=== PATIENT | female | born 1970 | race Caucasian/White ===

== ENCOUNTER 2018-09-23 08:49 | Emergency (ER) | payer BC ==
[2018-09-23 08:57] VITALS: BP 112/71
--- NOTE | 2018-09-23 09:12 | UC ---
Abdominal Pain Female HPI - HPI Summary HPI Summary: 4 days of worsening right lower quadrant pain associated with nausea, chills and low grade fever up to 101. - History of Current Complaint Chief Complaint: UCAbdominalPain Stated Complaint: ABD PAIN Time Seen by Provider: 09/23/18 09:03 Hx Obtained From: Patient, Family/Children Librarian - SIGNIFICANT OTHER Hx Last Menstrual Period: 09/04/18 Onset/Duration: Gradual Onset, Lasting Days, Still Present Timing: Constant Severity Initially: Moderate Severity Currently: Severe Pain Intensity: 8 Pain Scale Used: 0-10 Numeric Location: Discrete At: RLQ Radiates: No Character: Sharp Aggravating Factor(s): Movement Alleviating Factor(s): Nothing Associated Signs and Symptoms: Positive: Diaphoresis, Fever, Decreased Appetite , Nausea Allergies/Adverse Reactions: Allergies Allergy/AdvReac Type Severity Reaction Status Date / Time No Known Allergies Allergy Verified 09/23/18 08:57 PMH/Surg Hx/FS Hx/Imm Hx Previously Healthy: Yes Other History Of: Negative For: Anticoagulant Therapy - Surgical History Surgical History: None - Family History Family History: APPENDICITIS - Social History Alcohol Use: Occasionally Substance Use Type: None Smoking Status (MU): Never Smoked Tobacco Review of Systems All Other Systems Reviewed And Are Negative: Yes Constitutional: Positive: Fever, Chills Respiratory: Positive: Negative Cardiovascular: Positive: Negative Gastrointestinal: Positive: Abdominal Pain, Nausea Genitourinary: Positive: Negative Physical Exam Triage Information Reviewed: Yes Appearance: Well-Nourished, Pain Distress - MOD/SEVERE Vital Signs: Initial Vital Signs Temp 98 F 09/23/18 08:54 Pulse 63 09/23/18 08:54 Resp 16 09/23/18 08:54 BP 112/71 09/23/18 08:54 Pulse Ox 100 09/23/18 08:54 Vital Signs Reviewed: Yes Eyes: Positive: Conjunctiva Clear ENT: Positive: Hearing grossly normal Neck: Positive: Supple Respiratory: Positive: No respiratory distress, No accessory muscle use Cardiovascular: Positive: Pulses Normal Abdomen Description: Positive: Soft, Guarding, Other: - EXQUISITE RLQ TENDERNESS EVEN TO LIGHT PERCUSSION. POS OBTURATOR. PSOAS NOT DONE DUE TO PT INTOLERANCE. Negative: Distended Musculoskeletal: Positive: No Edema Neurological: Positive: Alert Psychological: Positive: Normal Response To Family, Age Appropriate Behavior Skin: Negative: Rashes Abd Pain Female Course/Dx - Course Course Of Treatment: CONCERN FOR ACUTE APPENDICITIS. TO [facility] ER BY PRIVATE CAR. PT OFFERED TRANSPORT TO THE ED BY AMBULANCE BUT DECLINES. ADVISED THAT BY NOT TRAVELING IN A MONITORED SETTING SHE COULD BE RISKING WORSENING OF HER CONDITION THAT COULD POSE A THREAT TO HER LIFE, HEALTH AND MEDICAL SAFETY. SHE VERBALIZES UNDERSTANDING AND CONTINUES TO DECLINE AMBULANCE TRANSFER. - Differential Dx/Diagnosis Provider Diagnosis: RLQ abdominal pain Discharge - Sign-Out/Discharge Documenting (check all that apply): Patient Departure All imaging exams completed and their final reports reviewed: No Studies - Discharge Plan Condition: Stable Disposition: TRANS HIGHER LVL OF CARE FAC Patient Education Materials: Abdominal Pain (ED) Referrals: David Fortune MD [Primary Care Provider] - If Needed Additional Instructions: CONCERN FOR ACUTE APPENDICITIS. GO DIRECTLY TO THE [facility] ED FROM HERE FOR FURTHER EVALUATION. YOU HAVE DECLINED TRANSFER TO THE ED BY AMBULANCE. BE ADVISED THAT BY NOT TRAVELING IN A MONITORED SETTING YOU COULD BE RISKING WORSENING OF YOUR CONDITION THAT COULD POSE A THREAT TO YOUR LIFE, HEALTH AND MEDICAL SAFETY. - Billing Disposition and Condition Condition: STABLE Disposition: Trans Higher Lvl of Care Fac
== END 2018-09-23 09:12 | disposition short-term general hospital (02) ==
LOC: UCEAST 08:49
DX: R10.31 Right lower quadrant pain (principal); R50.9 Fever, unspecified; R61 Generalized hyperhidrosis; F50.89 Other specified eating disorder; R11.0 Nausea
CPT/HCPCS: 99212; G0463

== ENCOUNTER 2018-09-23 09:25 | Emergency (ER) | payer BC ==
[2018-09-23] MEDS ORDERED: NS 0.9% 1000 ML** 1,000 ML IV ONE (09:51)
[2018-09-23] MEDS ORDERED: Ondansetron INJ* 2 MG/ML VIAL IV ONE (09:51)
[2018-09-23] MEDS ORDERED: Morphine 4 MG/ML VIAL (1 ml) 4 MG/ML VIAL IV ONE (09:53)
--- NOTE | 2018-09-23 10:00 | ED ---
Abdominal Pain/Female - HPI Summary HPI Summary: Patient is a 48-year-old female who presents emergency department for lower quadrant abdominal pain 4 days. Associated symptoms of nausea and diarrhea. Denies urinary symptoms, fever, cough or upper respiratory symptoms. Patient no significant past medical history. Pt. states pain was initially sharp and intermittent and today is dull and constant. Movement makes symptoms worse. Rest makes symptoms better. Symptoms are moderate in severity. - History of Current Complaint Chief Complaint: EDAbdPain Stated Complaint: LOWER RIGHT ABD PAIN PER PT Time Seen by Provider: 09/23/18 09:34 Hx Obtained From: Patient Hx Last Menstrual Period: 09/04/18 Pain Intensity: 8 Allergies/Adverse Reactions: Allergies Allergy/AdvReac Type Severity Reaction Status Date / Time No Known Allergies Allergy Verified 09/23/18 08:57 PMH/Surg Hx/FS Hx/Imm Hx Previously Healthy: Yes Endocrine/Hematology History: Denies: Hx Anticoagulant Therapy, Hx Diabetes, Hx Thyroid Disease Cardiovascular History: Denies: Hx Hypertension, Hx Pacemaker/ICD Respiratory History: Denies: Hx Asthma, Hx Chronic Obstructive Pulmonary Disease (COPD) GI History: Reports: Other GI Disorders - "GASTRO ISSUES" History: Denies: Hx Renal Disease Neurological History: Denies: Hx Dementia, Hx Seizures Psychiatric History: Denies: Hx Substance Abuse - Cancer History Hx Chemotherapy: No Hx Radiation Therapy: No Infectious Disease History: No Infectious Disease History: Denies: Hx Hepatitis, Hx Human Immunodeficiency Virus (HIV), Traveled Outside the [place] in Last 30 Days - Family History Known Family History: Positive: Non-Contributory Family History: APPENDICITIS - Social History Occupation: Employed Full-time Lives: With Family Alcohol Use: Occasionally Substance Use Type: Reports: None Smoking Status (MU): Never Smoked Tobacco Review of Systems Constitutional: Negative Negative: Fever, Chills Eyes: Negative ENT: Negative Cardiovascular: Negative Respiratory: Negative Positive: Abdominal Pain, Diarrhea, Nausea. Negative: Vomiting Genitourinary: Negative Negative: burning, dysuria, discharge, flank pain Skin: Negative All Other Systems Reviewed And Are Negative: Yes Physical Exam Triage Information Reviewed: Yes Vital Signs On Initial Exam: Initial Vitals Temp Pulse Resp BP Pulse Ox 98.2 F 60 18 130/84 99 09/23/18 09:27 09/23/18 09:27 09/23/18 09:27 09/23/18 09:27 09/23/18 09:27 Vital Signs Reviewed: Yes Appearance: Positive: Well-Appearing - Pt. sitting up in bed in NAD. Skin: Positive: Warm, Dry Head/Face: Positive: Normal Head/Face Inspection Eyes: Positive: Normal, EOMI Neck: Positive: Supple Respiratory/Lung Sounds: Positive: Clear to Auscultation, Breath Sounds Present Cardiovascular: Positive: Normal, RRR Abdomen Description: Positive: Other: - Abd. is soft with marked tenderness to RLQ. No rebound tenderness or guarding. Neurological: Positive: Normal, CN Intact II-III Psychiatric: Positive: Affect/Mood Appropriate Diagnostics - Vital Signs Vital Signs Temp Pulse Resp BP Pulse Ox 09/23/18 09:27 98.2 F 60 18 130/84 99 - Laboratory Result Diagrams: 09/23/18 10:21 09/23/18 10:21 Lab Statement: Any lab studies that have been ordered have been reviewed, and results considered in the medical decision making process. Abdominal Pain Fem Course/Dx - Course Course Of Treatment: Patient presenting for significant right lower quadrant abdominal pain. We'll obtain labs and CT scan for further evaluation and rule out appendicitis. Patient was given IV fluids, Zofran and morphine. Blood work is unremarkable including normal WBC and CRP. Urinalysis shows ketones elevated specific gravity without signs of infection. CT abd./pelvis per radiology: IMPRESSION: #. Normal appendix documented. #. Colonic diverticulosis without compelling evidence for acute diverticulitis. #. Small probable follicular cysts of the ovaries as noted. On reexamination patient's pain is improved and she is resting comfortably. Results were discussed. Patient was discouraged there is no definitive answer for pain. She does note she has a history of colonic polyps for which she she is GI for as well as questionable endometriosis she sees a director international for. Recommend follow-up with the specialties for further evaluation. Small prescription for pain medication prescribed, MOBILE QA TESTER was reviewed and no red flags noted. Advised to apply warm compresses. To call PCP, gynecology and GI today for close follow- up appointment. Return to the ER symptoms change or worsen. Patient understands and agrees with plan. - Diagnoses Differential Diagnosis: Positive: Appendicitis, Bowel Obstruction, Constipation , Irritable Bowel Syndrome, Renal Colic, Urinary Tract Infection Provider Diagnoses: Abdominal pain Discharge - Sign-Out/Discharge Documenting (check all that apply): Patient Departure Patient Received Moderate/Deep Sedation with Procedure: No - Discharge Plan Condition: Improved Disposition: HOME Prescriptions: Hydrocodone/Acetaminophen [Hydrocodone-Acetamin 5-325 mg] 1 each PO Q6H #12 tablet MDD 4 tabs Ondansetron TAB* [Zofran 4 MG Tab*] 4 mg PO Q6H PRN #12 tab PRN Reason: Pain Patient Education Materials: Abdominal Pain (ED) Referrals: David Fortune MD [Primary Care Provider] - - Billing Disposition and Condition Condition: IMPROVED Disposition: Home
[2018-09-23 10:47] LABS: ABS Basophils 0.1 10^3/ul (0-0.2); ABS Eosinophils 0.1 10^3/ul (0-0.6); ABS Lymphocytes 1.6 10^3/ul (1.0-4.8); ABS Monocytes 0.4 10^3/ul (0-0.8); ABS Nucleated RBC 0 10^3/ul; Eosinophil % 1.8 %; Hematocrit 40 % (33-41); Hemoglobin 13.4 g/dL (12.0-16.0); Lymphocyte % 25.6 %; Mean Corpuscular HGB Conc 34 g/dL (31-36); Mean Corpuscular Hemoglobin 31 pg (27-31); Mean Corpuscular Volume 89 fL (80-97); Mean Platelet Volume 9.2 fL (7.4-10.4); Nucleated Red Blood Cells % 0; Platelet Count 163 10^3/uL (150-450); Red Blood Count 4.41 10^6 /uL (3.70-4.87); Red Cell Distribution Width 13 % (10.5-15); White Blood Count 6.2 10^3/uL (3.5-10.8)
[2018-09-23 11:02] LABS: ALT 19 U/L (7-52); AST 16 U/L (13-39); Albumin 3.9 g/dL (3.2-5.2); Albumin/Globulin Ratio 1.9 (1-3); Alkaline Phosphatase 49 U/L (34-104); Anion Gap 5 mmol/L (2-11); Blood Urea Nitrogen 10 mg/dL (6-24); C Reactive Protein 7.52 mg/L (<8.01); CO2 Carbon Dioxide 24 mmol/L (22-32); Calcium 8.8 mg/dL (8.6-10.3); Chloride 109 mmol/L (101-111); EGFR Non-African American 79.3 (>60); Globulin 2.1 g/dL (2-4); Glucose 106 mg/dL (70-100); Potassium 3.8 mmol/L (3.5-5.0); Sodium 138 mmol/L (135-145)
[2018-09-23] MEDS ORDERED: Iohexol 300* (CONTRAST) 10 ML SDV IV ONE (11:06)
[2018-09-23 11:08] LABS: HCG Pregnancy < 0.60 mIU/mL
[2018-09-23 11:42] VITALS: BP 115/72
[2018-09-23 14:05] LABS: Urine Appearance Clear; Urine Bilirubin Negative (Negative); Urine Blood Negative (Negative); Urine Color Straw; Urine Glucose Negative (Negative); Urine Ketones Trace (Negative); Urine Nitrite Negative (Negative); Urine Protein Negative (Negative); Urine Specific Gravity 1.056 (1.010-1.030); Urine Urobilinogen Negative (Negative)
== END 2018-09-23 14:56 | disposition home or self-care (01) ==
LOC: ED 09:25
DX: R10.31 Right lower quadrant pain (principal)
CPT/HCPCS: 36415; 74177; 80053; 81003; 83605; 83690; 84702; 85025; 86140; 96361; 96374; 96375; 99283; J2270; J2405; Q9967

== ENCOUNTER 2020-12-05 05:49 | Observation (INO) ==
[2020-12-05] MEDS ORDERED: Buffered Lidocaine 1% SYRIN 1 ml INTRADERM ONE ×2 (06:00→06:39)
[2020-12-05] MEDS ORDERED: Lactated Ringers 1000 ml BAG 1,000 ML IV SCH (06:00)
[2020-12-05] MEDS ORDERED: ceFAZolin 2 GM PREMIX 2 GM/50 ML BAG ONE (06:38)
[2020-12-05] MEDS ORDERED: Chlorhexidine MOUTHWASH 0.12% 15 ML UDC ONE (07:13)
[2020-12-05] MEDS ORDERED: Heparin 5000 UNITS/ML 1 mL VIAL ONE (07:13)
[2020-12-05] MEDS ORDERED: Bupivacaine 0.5% SDV PF 30ML VIAL ONE (07:13)
[2020-12-05] MEDS ORDERED: fentaNYL 100 mcg/2 ml 50 MCG/ML VIAL ONE ×4 (07:26→13:58)
[2020-12-05] MEDS ORDERED: Midazolam 5 mg/5 ml VIAL 1 mg/ml 5 ml VIAL (5 mg) ONE (07:26)
[2020-12-05] MEDS ORDERED: Lidocaine 2% PF 5 ML VIAL ONE (07:32)
[2020-12-05] MEDS ORDERED: Rocuronium 50 mg VIAL 10 mg/ml 5 ml VIAL (50 mg) ONE ×2 (07:44→08:41)
[2020-12-05] MEDS ORDERED: Dexmedetomidine 200 mcg/2 ml 2 ml VIAL (200 mcg) ONE (09:09)
[2020-12-05] MEDS ORDERED: DiMENhydriNATE IV 50 mg/ml 1 ml VIAL IV PUSH PRN (10:46)
[2020-12-05] MEDS ORDERED: Ondansetron 4 mg VIAL 2 MG/ML 2 ml VIAL IV PRN (10:46)
[2020-12-05] MEDS ORDERED: Naloxone 0.4 mg VIAL 0.4 mg/ml 1 ml VIAL IV PRN (10:46)
[2020-12-05] MEDS ORDERED: Acetaminophen IV 1 GM/100ML 100 ML ONE (12:03)
[2020-12-05] MEDS ORDERED: Ondansetron 4 mg VIAL 2 MG/ML 2 ml VIAL ONE ×2 (12:05→15:14)
[2020-12-05] MEDS: fentaNYL 100 mcg/2 ml 50 MCG/ML VIAL IV PRN ×2 (13:59→17:49)
[2020-12-05] MEDS ORDERED: Glycopyrrolate IV 0.2 MG/ML 1 ML VIAL ONE (15:47)
[2020-12-05] MEDS ORDERED: DiMENhydriNATE IV 50 mg/ml 1 ml VIAL ONE (19:02)
[2020-12-05] MEDS ORDERED: oxyCODONE/Acetamin 5/325 mg TAB PO PRN (21:37)
[2020-12-06] MEDS ORDERED: oxyCODONE/Acetamin 5/325 mg TAB PO PRN (00:20)
[2020-12-06 03:03] LABS: ABS Lymphocytes 0.8 10^3/ul (1.0-4.8); ABS Monocytes 0.5 10^3/ul (0-0.8); ABS Neutrophils 8.5 10^3/ul (1.5-7.7); Hematocrit 36 % (35-47); Hemoglobin 12.2 g/dL (12.0-16.0); Lymphocyte % 8.4 %; Mean Corpuscular HGB Conc 34 g/dL (31-36); Mean Corpuscular Hemoglobin 30 pg (27-31); Mean Corpuscular Volume 90 fL (80-97); Mean Platelet Volume 8.9 fL (7.4-10.4); Platelet Count 176 10^3/uL (150-450); Red Blood Count 4.03 10^6 /uL (3.70-4.87); Red Cell Distribution Width 13 % (10-15); White Blood Count 9.9 10^3/uL (3.5-10.8)
[2020-12-06 07:39] VITALS: BP 107/61
== END 2020-12-06 10:45 | disposition home or self-care (01) ==
LOC: OR 05:49 → SSU 05:49
PROVIDERS: ADMIT Obstetrics & Gynecology; ATTEND Obstetrics & Gynecology

== ENCOUNTER 2023-07-14 05:52 | Observation (INO) ==
[2023-07-14] MEDS ORDERED: Lactated Ringers 1000 ml BAG 1,000 ML IV SCH (06:00)
[2023-07-14] MEDS ORDERED: Famotidine IV 10 MG/ML 2 ml VIAL (20 mg) IV ONE (06:00)
[2023-07-14] MEDS ORDERED: Buffered Lidocaine 1% SYRIN 1 ml INTRADERM ONE (06:00)
[2023-07-14] MEDS ORDERED: ceFAZolin 2 GM PREMIX 2 GM/50 ML BAG ONE (06:22)
[2023-07-14] MEDS ORDERED: Famotidine IV 10 MG/ML 2 ml VIAL (20 mg) ONE (06:22)
[2023-07-14 06:37] LABS: Rapid COVID-19 Molecular Undetected (Undetected)
[2023-07-14] MEDS ORDERED: Bupivacaine 0.5% SDV PF 30ML VIAL ONE (06:57)
[2023-07-14] MEDS ORDERED: Vancomycin 1,000 MG VIAL ONE (06:57)
[2023-07-14] MEDS ORDERED: Dexamethasone IV 4 MG/ML VIAL 1 ml VIAL ONE ×2 (07:01→07:17)
[2023-07-14] MEDS ORDERED: Lidocaine 2% PF 5 ML VIAL ONE (07:01)
[2023-07-14] MEDS ORDERED: Sevoflurane BOTTLE ONE (07:01)
[2023-07-14] MEDS ORDERED: Propofol 10 MG/ML 20 ML BTL ONE (07:01)
[2023-07-14] MEDS ORDERED: Ondansetron 4 mg VIAL 2 MG/ML 2 ml VIAL ONE ×2 (07:01→11:39)
[2023-07-14] MEDS ORDERED: Midazolam 2 mg/2 ml VIAL 1 mg/ml 2 ml VIAL (2 mg) ONE ×2 (07:02→07:17)
[2023-07-14] MEDS ORDERED: Rocuronium 50 mg VIAL 10 mg/ml 5 ml VIAL (50 mg) ONE (07:02)
[2023-07-14] MEDS ORDERED: fentaNYL 100 mcg/2 ml 50 MCG/ML VIAL ONE ×3 (07:02→11:13)
[2023-07-14] MEDS ORDERED: ROPIVACAINE 5 MG/ML 30 ML BTL (0.5%) ONE (07:17)
[2023-07-14] MEDS ORDERED: Acetaminophen IV 1 GM/100ML 1,000 MG/100 ML BAG IV ONE (08:05)
[2023-07-14] MEDS ORDERED: HYDROmorphone 0.5 MG/0.5 ML SYRINGE ONE (10:47)
[2023-07-14] MEDS ORDERED: Magnesium Hydroxide LIQ 30 ML UDC PO PRN (11:02)
[2023-07-14] MEDS ORDERED: Morphine 2 MG/ML SYRINGE IV PRN (11:02)
[2023-07-14] MEDS ORDERED: Lactulose 30 ml UDC PO PRN (11:02)
[2023-07-14] MEDS ORDERED: Ondansetron ODT 4 mg TAB 4 MG TAB PO PRN (11:02)
[2023-07-14] MEDS ORDERED: Ondansetron 4 mg VIAL 2 MG/ML 2 ml VIAL IV PRN ×2 (11:02→11:45)
[2023-07-14] MEDS: fentaNYL 100 mcg/2 ml 50 MCG/ML VIAL IV PRN ×4 (11:14→11:45)
[2023-07-14] MEDS ORDERED: HYDROcodone/ACETAMIN 5/325 mg TAB PO PRN (11:45)
[2023-07-14] MEDS ORDERED: Metoclopramide 5 MG/ML VIAL (10 mg) IV PRN (11:45)
[2023-07-14] MEDS ORDERED: Naloxone 0.4 mg VIAL 0.4 mg/ml 1 ml VIAL IV PRN (11:45)
[2023-07-14] MEDS ORDERED: HYDROcodone/ACETAMIN 5/325 mg TAB ONE (11:58)
[2023-07-14] MEDS ORDERED: Metoclopramide 5 MG/ML VIAL (10 mg) ONE (11:58)
[2023-07-14] MEDS: Lactated Ringers 1000 ml BAG 1,000 ML IV SCH ×2 (13:29→23:38)
[2023-07-14] MEDS: Magnesium Hydroxide LIQ 30 ML UDC PO SCH (20:14)
[2023-07-15] MEDS: ceFAZolin 1 GM X 3 DOSES POST-OP Q8H (AddVan) IVPB SCH ×3 (00:24→15:01)
[2023-07-15 06:40] LABS: Platelet Count 190 10^3/uL (150-450)
[2023-07-15 06:53] LABS: Hematocrit 32.2 % (35-45); Mean Platelet Volume 8.9 fL (7.5-11.2)
[2023-07-15 06:58] LABS: Calcium 8.3 mg/dL (8.6-10.3); Creatinine, Serum 0.81 mg/dL (0.51-0.95); Potassium 4.1 mmol/L (3.5-5.0); eGFR CKD-EPI 86.2 (>60)
[2023-07-15] MEDS ORDERED: Vitamin THERAPEUTIC TAB PO SCH (09:00)
[2023-07-15] MEDS: Magnesium Hydroxide LIQ 30 ML UDC PO SCH (10:09)
[2023-07-15] MEDS: Lactated Ringers 1000 ml BAG 1,000 ML IV SCH (10:22)
[2023-07-15 13:54] VITALS: BP 128/85
== END 2023-07-15 16:00 | disposition home or self-care (01) ==
LOC: OR 05:52 → SSU 05:52 → EDSTATUS 07:30
PROVIDERS: ADMIT Orthopaedic Surgery; ATTEND Orthopaedic Surgery